=== PATIENT | male | born 1985 | race Caucasian/White ===

== ENCOUNTER 2020-10-01 05:53 | Day surgery (SDC) | payer BC, OTHER ==
[2020-10-01] MEDS ORDERED: Dextrose 5%-Lactated Ringers 1,000 ML IV SCH (06:45)
[2020-10-01] MEDS ORDERED: Propofol 200 MG/20 ML SDV ONE (07:01)
[2020-10-01] MEDS ORDERED: fentaNYL 100 MCG/2 ML SDV ONE (07:02)
[2020-10-01] MEDS ORDERED: Midazolam 1 MG/ML 2 ML SDV ONE (07:02)
[2020-10-01] MEDS ORDERED: Glycopyrrolate 0.2 MG/ML 2 ML SDV IVPUSH ONE (07:15)
[2020-10-01] MEDS ORDERED: Pantoprazole 40 MG Vial IVPUSH ONE (07:42)
--- NOTE | 2020-10-09 16:38 | OR ---
DATE OF PROCEDURE: 10/01/2020 SURGEON: Henry Lara MD PREOPERATIVE DIAGNOSIS: Epigastric pain. POSTOPERATIVE DIAGNOSES: 1. Epigastric pain associated with a small hiatal hernia and gastroesophageal reflux disease with possible Dexter's esophagus. 2. Mild gastritis involving body and antrum of the stomach. OPERATIVE PROCEDURES: Esophagogastroduodenoscopy with: 1. Biopsy of esophagogastric junction for histologic evaluation. 2. Biopsies of antrum for CLOtest. ANESTHESIA: IV sedation. INDICATION FOR PROCEDURE: This is a 35-year-old male presenting with some ongoing epigastric discomfort along with some heartburn symptoms. Plan is to proceed with an upper GI endoscopy. The patient has never been on antisecretory medication, was given a prescription for omeprazole 20 mg b.i.d., but has not started that yet, which is probably a good thing in terms of getting baseline diagnostic evaluation. The plans is to proceed with upper endoscopy with biopsy as indicated. Potential risks including bleeding and perforation were discussed, and the patient wishes to proceed. DESCRIPTION OF PROCEDURE: The patient was taken to the operating room and placed in a left lateral decubitus position. IV sedation was administered, after which the upper GI endoscope was passed orally through the length of the esophagus into the stomach, retroflexion revealed the fundus with the pyloric channel into the proximal duodenum. Findings included normal hypopharynx, larynx, upper esophageal sphincter, esophageal body. At the EG junction, the patient was noted to have a small hernia measuring 1 to 2 cm. There was some generalized edema and friability of the distal esophagus, also there was some upward extension of the columnar mucosa and a single island of columnar mucosa suggestive of possible Dexter's esophagus. No stricturing or plaquing were seen. We did a distal body and antrum without erosions or ulcers. Pyloric channel or duodenum and any other portions were otherwise unremarkable. Biopsies were obtained from the antrum and sent for CLOtest for H pylori. Multiple biopsies were then obtained from the esophagogastric junction focusing on the areas of possible Dexter's esophagus. No bleeding from the biopsy site was seen. The procedure was then concluded. At this point, the patient will be given Protonix 40 mg IV in the recovery room and then he will be getting his omeprazole dosage started and we will have him follow up with Dr. Guadarrama in the [facility] in 2 to 3 weeks. Henry Lara MD /[id number]
== END 2020-10-01 09:09 | disposition home or self-care (01) ==
LOC: JP.SDS 05:53
PROVIDERS: ATTEND Surgery
DX: K21.00 Gastro-esophageal reflux disease with esophagitis, without bleeding (principal); K29.70 Gastritis, unspecified, without bleeding; K44.9 Diaphragmatic hernia without obstruction or gangrene; K86.89 Other specified diseases of pancreas; I10 Essential (primary) hypertension; Z88.2 Allergy status to sulfonamides; Z88.8 Allergy status to other drugs, medicaments and biological substances
CPT/HCPCS: 43239; 87081; 88305; C9113; J2250; J2704; J3010; J3490; J7121

== ENCOUNTER 2022-12-29 20:43 | Emergency (ER) | payer BC | END 2022-12-29 23:29 | disposition other institution (70) | LOC: JP.ED 20:43 | DX: S68.110A Complete traumatic metacarpophalangeal amputation of right index finger, initial encounter (principal); Z88.1 Allergy status to other antibiotic agents; Z86.16 Personal history of COVID-19; W26.8XXA Contact with other sharp object(s), not elsewhere classified, initial encounter; Y92.009 Unspecified place in unspecified non-institutional (private) residence as the place of occurrence of the external cause | CPT/HCPCS: 73120-26-RT; 73120-RT; 99284 ==